=== PATIENT | male | born 1960 | race Caucasian/White ===

== ENCOUNTER 2021-02-13 17:38 | Emergency (ER) | payer OTHER ==
--- NOTE | 2021-02-13 19:21 | ER ---
Nurse's Notes [facility] Name: Amanda Koch Age: 60 yrs Sex: Male : 1960 Arrival Date: 02/13/2021 Time: 17:48 Bed Waiting Private MD: Diagnosis: Assessment: 02/13 18:51 Reassessment: Called to Triage twice within the past 15 minutes. No answer. Unable to ss locate patient. ED Course: 17:48 Patient arrived in ED. mr Administered Medications: No medications were administered Outcome: 19:20 Patient left the ED. iw Signatures: Julia Gonzalez Irene RN RN iw Freya Hassan RN RN ss
== END 2021-02-13 19:20 | disposition left against medical advice (07) ==
LOC: ER 17:38
DX: Z02.9 Encounter for administrative examinations, unspecified (principal)